=== PATIENT | male | born 1935 | race Caucasian/White ===

== ENCOUNTER 2017-04-21 05:45 | Observation (INO) | payer OTHER, MEDICARE ==
[2017-04-21 05:53] VITALS: BMI 18.2
[2017-04-21] MEDS ORDERED: NITROSTAT SL ONE (06:05)
[2017-04-21] MEDS ORDERED: ASPIRIN ONE (06:05)
[2017-04-21] MEDS: NITROSTAT SL PRN (06:09)
[2017-04-21] MEDS ORDERED: ASPIRIN PO ONE (06:09)
[2017-04-21] MEDS ORDERED: NS 1000 ML 1,000 ML ONE (06:13)
[2017-04-21] MEDS ORDERED: NS 1000 ML 1,000 ML IV ONE (06:13)
[2017-04-21 06:15] LABS: BASOPHILS # (AUTO) 0.1 X10^3/uL (0.0-0.1); BASOPHILS % (AUTO) 0.7 % (0.2-1.0); EOSINOPHILS # (AUTO) 0.3 x10^3/uL (0.0-0.2); EOSINOPHILS % (AUTO) 3.3 % (0.9-2.9); HEMATOCRIT 39.8 % (42.0-54.0); LYMPHOCYTES # (AUTO) 2.4 X10^3/uL (1.3-2.9); LYMPHOCYTES % (AUTO) 27.7 % (21.0-51.0); MEAN CORPUSCULAR HEMOGLOBIN 35.3 pg (27.0-34.0); MEAN CORPUSCULAR HGB CONC 35.1 g/dL (33.0-35.0); MEAN CORPUSCULAR VOLUME 100.4 fL (80.0-100.0); MEAN PLATELET VOLUME 7.8 fL (7.4-11.0); MONOCYTES # (AUTO) 0.7 x10^3/uL (0.3-0.8); MONOCYTES % (AUTO) 8.4 % (0.0-13.0); NEUTROPHILS # (AUTO) 5.3 x10^3/uL (2.2-4.8); NEUTROPHILS % (AUTO) 59.9 % (42.0-75.0); PLATELET COUNT 142 X10^3/uL (150.0-450.0); RED BLOOD COUNT 3.97 X10^6/uL (4.7-6.0); RED CELL DISTRIBUTION WIDTH 12.9 % (11.6-16.5); WHITE BLOOD COUNT 8.8 X10^3/uL (3.6-10.0)
--- NOTE | 2017-04-21 06:27 | RAD ---
HISTORY: Chest pain Study: Chest one view Comparison: January 12, 2017 Findings: The patient is status post median sternotomy and CABG. Bilateral pacemakers are present obscuring a portion of the mid lungs bilaterally. The heart is enlarged. No congestive heart failure is noted. N o acute alveolar infiltrates or pleural effusions are identified. The bony thorax is unremarkable. IMPRESSION: Cardiomegaly without congestive heart failure No definite infiltrates Reported By:
--- NOTE | 2017-04-21 06:35 | DR.CP ---
HPI - Time Seen Time seen: 06:00 - PCP Primary Care Physician: LA NENA - HPI Comment HPI Comment: PATIENT WOKE UP WITH PRECORDIAL CHEST PAIN/STABBING PAIN ASSOCIATED WITH SOB - Complaint Chief Complaint Doctor Comments: CHEST PAIN. Chief Complaint:: C/P SINCE EARLY THIS AM. PT HAS EXTENSIVE CARDIAC HISTORY. - Reviewed Nurses Notes Review: Yes - Source History Provided: Patient - Mode of Arrival Mode of Arrival: Ambulatory - Timing Onset of Chief Complaint: 04/21/17 Came on: Suddenly Pain: Present Now - Duration Duration: Constant Duration: Hours - Location Location of Chest Pain: Left, Chest Chest Pain Radiation Location: None - Context Onset: While Asleep Cardiac Risk Factors: HTN History of: Similar pain in the past, [place], Angina, Angioplasty Prehospital Care: [facility] - Quality Quality: Stabbing - Severity Severity: Moderate - Modifying Factors Worsens: Nothing Impoves: NTG - Associated Signs and Symptoms Associated Signs and Symptoms: Shortness of Breath PMH - PMH Past Medical History: Yes Past Medical History: Hypertension, [place] Past Medical History Comment: [place] X 6 Past Surgical History: Yes Surgical History: Angioplasty/Stents, CABG/Valve Surgery - Family History History of Family Medical Conditions: Yes Family Medical History: [place], Hypertension - Social History Alcohol Use: None Do you use any recreational Drugs:: No Lives With: Family Lives Where: Home - infectious screening In the last 2 months have you had wt loss of >10#?: NO Have you had fever, night sweats or hemotysis?: No Have you traveled outside the country in the last 6 months?: No Isolation: Standard ROS - Review of Systems Constitutional: Weakness, Fatigue. negative: Chills, Diaphoresis, Fever, Loss of Appetite Eyes: No Symptoms Reported. negative: Eye Pain, Discharge ENTM: No Symptoms Reported. negative: Ear Pain, Nose Discharge, Nose Congestion , Throat Pain Respiratoy: Short of Breath. negative: Productive Cough, Non-Productive Cough, Wheezing, Hemoptysis Cardiovascular: Chest Pain. negative: Edema, Palpitations, Syncope Gastrointestinal/Abdominal: Nausea. negative: Abdominal Pain, Constipation, Diarrhea, Vomiting Genitourinary: No Symptoms Reported. negative: Dysuria, Frequency, Hematuria Neurological: No Symptoms Reported, Weakness. negative: Headache, Dizziness Musculoskeletal: negative: Muscle Pain Integumentary: No Symptoms Reported Hematologic/Lymphatic: Easy Bruising Endocrine: No Symptoms Reported All Other Systems: Reviewed and Negative PE - Vitals Vitals: Temperature 99.2 F Pulse Rate [Apical] 71 Pulse Rate 114 Respiratory Rate 22 Blood Pressure [Left Arm] 86/50 Blood Pressure [Right Arm] 111/57 Blood Pressure 99/68 O2 Sat by Pulse Oximetry 98 - General Limitations: No Limitations General Appearance: Alert - Head Head Exam: Normal Inspection - Eyes Eye exam: Normal Appearance - ENT ENT Exam: Normal External Ear Exam - Chest Chest Inspection: Symmetric Chest Wall Rise - Respiratory Respiratory Exam: Normal Lung Sounds Bilat Respiratory Exam: Bilateral Rhonchi, Lower Rhonchi - Cardiovascular Cardiovascular Exam: Regular Rate, Normal Rhythm, Normal Heart Sounds Pulse: Normal, Radial, Femoral Edema: Normal - Abdominal Exam Abdominal Exam: Normal Bowel Sounds, Soft. negative: Tenderness - Extremities Extremities Exam: Normal Inspection, Full ROM - Back Back Exam: Normal Inspection - Neurologic Neurological Exam: Alert, Oriented X3, CN II-XII Intact, Reflexes Normal. negative: Motor Sensory Deficit - Psychiatric Psychiatric Exam: Anxious - Skin Skin Exam: Normal Color MDM - Additional Information Additional Information Obtained From: Family - Differential Diagnosis Differential Diagnosis: Angina, Gastritis, Myocardial Infarction, Pericarditis, Pleuritis, Pancreatitis, Pneumonia, Pneumothorax, Pulmonary Embolus Course - Treatment Treatment: SEE ORDERS. - Reevaluation 1st: Improved (PAIN RESOLVE IN ED WITH S/L NTG.) - Consultation Consultation Comments: DISCUSS PATIENT WITH DR. CLARK. HE WILL ADMIT PATIENT. - Education/Counseling Education/Counseling: Patient, Family, Education Educated On: Treatment, Diagnosis ROR - Labs Reviewed Laboratory Results Reviewed?: Yes Result Diagrams: 04/21/17 06:00 04/21/17 06:00 Laboratory: WBC 8.8 X10^3/uL (3.6-10.0) 04/21/17 06:00 RBC 3.97 X10^6/uL (4.7-6.0) L 04/21/17 06:00 Hgb 14.0 g/dL (13.5-18.0) 04/21/17 06:00 Hct 39.8 % (42.0-54.0) L 04/21/17 06:00 MCV 100.4 fL (80.0-100.0) H 04/21/17 06:00 MCH 35.3 pg (27.0-34.0) H 04/21/17 06:00 MCHC 35.1 g/dL (33.0-35.0) H 04/21/17 06:00 RDW 12.9 % (11.6-16.5) 04/21/17 06:00 Plt Count 142 X10^3/uL (150.0-450.0) L 04/21/17 06:00 MPV 7.8 fL (7.4-11.0) 04/21/17 06:00 Neut % 59.9 % (42.0-75.0) 04/21/17 06:00 Lymph % 27.7 % (21.0-51.0) 04/21/17 06:00 [place] % 8.4 % (0.0-13.0) 04/21/17 06:00 Eos % 3.3 % (0.9-2.9) H 04/21/17 06:00 Baso % 0.7 % (0.2-1.0) 04/21/17 06:00 Neut # 5.3 x10^3/uL (2.2-4.8) H 04/21/17 06:00 Lymph # 2.4 X10^3/uL (1.3-2.9) 04/21/17 06:00 [place] # 0.7 x10^3/uL (0.3-0.8) 04/21/17 06:00 Eos # 0.3 x10^3/uL (0.0-0.2) H 04/21/17 06:00 Baso # 0.1 X10^3/uL (0.0-0.1) 04/21/17 06:00 Absolute Nucleated RBC 0.0 /100WBC 04/21/17 06:00 INR Target Range - 04/21/17 06:00 INR 1.05 (0.8-1.3) 04/21/17 06:00 PTT 29.5 SECONDS (22.9-36.5) 04/21/17 06:00 PTT Comment - 04/21/17 06:00 Sodium 135 mmol/L (136-145) L 04/21/17 06:00 Corrected Sodium TNP 04/21/17 06:00 Potassium 4.3 mmol/L (3.5-5.1) 04/21/17 06:00 Chloride 104 mmol/L (98-107) 04/21/17 06:00 Carbon Dioxide 25.4 mmol/L (21-32) 04/21/17 06:00 BUN 20 mg/dL (7-18) H 04/21/17 06:00 Creatinine 1.21 mg/dL (0.70-1.30) 04/21/17 06:00 Est GFR (MDRD) Af Amer > 60 (>60) 04/21/17 06:00 Est GFR (MDRD) Non-Af > 60 (>60) 04/21/17 06:00 Glucose 103 mg/dL (65-99) H 04/21/17 06:00 Calcium 9.5 mg/dL (8.5-10.1) 04/21/17 06:00 Corrected Calcium TNP 04/21/17 06:00 Magnesium 1.8 mg/dL (1.7-2.9) 04/21/17 06:00 Total Bilirubin 0.70 mg/dL (0.2-1.0) 04/21/17 06:00 AST 26 Units/L (15-37) 04/21/17 06:00 ALT 34 Units/L (12-78) 04/21/17 06:00 Alkaline Phosphatase 87 Units/L (46-116) 04/21/17 06:00 Creatine Kinase 62 Units/L (39-308) 04/21/17 06:00 CK-MB (CK-2) 1.4 ng/mL (0-4.0) 04/21/17 06:00 CK/CKMB % Calc 2.3 % (<4) 04/21/17 06:00 Troponin I 0.03 ng/mL (0-1.5) 04/21/17 06:00 Total Protein 7.3 g/dL (6.4-8.2) 04/21/17 06:00 Albumin 3.5 g/dL (3.4-5.0) 04/21/17 06:00 Globulin 3.8 g/dL (2.5-4.5) 04/21/17 06:00 Albumin/Globulin Ratio 0.9 Ratio (1.1-2.1) L 04/21/17 06:00 - XRAY XRAY Interpreted by: Radiologist XRAY Findings: REPORT DISCUSS WITH PATIENT AND HIS . - EKG Rhythm: Paced - Diagnosis Discharge Problem: Chest pain Qualifiers: Chest pain type: precordial pain Qualified Code(s): R07.2 - Precordial pain CAD (coronary artery disease) Qualifiers: Coronary Disease-Associated Artery/Lesion type: unspecified vessel or lesion type [place] vs. transplanted heart: unspecified whether [place] or transplanted heart Associated angina: with unspecified angina Qualified Code(s): I25.119 - Atherosclerotic heart disease of [place] coronary artery with unspecified angina pectoris - Discharge Plan Disposition: 09 ADMITTED INPATIENT Condition: Stable - Follow ups/Referrals - Instructions
[2017-04-21 06:42] LABS: BLOOD UREA NITROGEN 20 mg/dL (7-18); CALCIUM 9.5 mg/dL (8.5-10.1); CARBON DIOXIDE 25.4 mmol/L (21-32); CHLORIDE 104 mmol/L (98-107); CREATININE 1.21 mg/dL (0.70-1.30); GLUCOSE 103 mg/dL (65-99); SODIUM 135 mmol/L (136-145); TROPONIN I 0.03 ng/mL (0-1.5); eGFR BLACK RACES > 60 (>60); eGFR NON BLACK RACES > 60 (>60)
[2017-04-21 06:46] LABS: ALANINE AMINOTRANSFERASE 34 Units/L (12-78); ALBUMIN 3.5 g/dL (3.4-5.0); ALKALINE PHOSPHATASE 87 Units/L (46-116); ASPARTATE AMINO TRANSFERASE 26 Units/L (15-37); CKMB % 2.3 % (<4); CREATINE KINASE 62 Units/L (39-308); CREATINE KINASE MB 1.4 ng/mL (0-4.0); TOTAL PROTEIN 7.3 g/dL (6.4-8.2)
[2017-04-21 11:59] LABS: CKMB % 3.5 % (<4); CREATINE KINASE MB 1.9 ng/mL (0-4.0); TROPONIN I 0.1 ng/mL (0-1.5)
[2017-04-21] MEDS ORDERED: PATIENT'S HOME MEDICATION (Lisinopril [Lisinopril] 1 TAB) PO SCH (13:30)
[2017-04-21] MEDS ORDERED: PREVNAR 13 IM ONE (14:00)
[2017-04-21] MEDS: MEMANTINE HCL DONEPEZIL HCL PO SCH (14:29)
[2017-04-21] MEDS: PLETAL PO SCH (14:30)
[2017-04-21] MEDS: COREG TAB 3.125 MG PO SCH ×2 (14:30→21:20)
[2017-04-21] MEDS: RANEXA PO SCH ×2 (14:30→21:20)
[2017-04-21] MEDS: ISOSORBIDE MONONITRATE ER PO SCH (14:31)
[2017-04-21 17:52] LABS: CKMB % 3.2 % (<4); CREATINE KINASE MB 1.5 ng/mL (0-4.0); TROPONIN I 0.13 ng/mL (0-1.5)
--- NOTE | 2017-04-21 18:06 | DR.H&P ---
H&P - History & Physical for Day of: H&P Date: 04/21/17 - Chief Complaint Chief Complaint: CP - Allergies Allergies/Adverse Reactions: Allergies Allergy/AdvReac Type Severity Reaction Status Date / Time Promethazine Allergy Unknown Verified 01/12/17 01:24 [From Phenergan-D] Pseudoephedrine Allergy Unknown Verified 01/12/17 01:24 [From Phenergan-D] - History of Present Illness History of Present Illness: 81 WM ADMITTED FROM ER AFTER PRESENTING WITH CO CP THAT WOKE HIM UP FROM SLEEP. PT TOOK NITRO SL PRIOR TO ARRIVAL. PT FIRST SET OF CARDIAC ENZYMES WNL. PT HAS PMH OF CAD WITH CABG, PT HAS PACER/EDFIBRILLATOR. 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 - Past Medical History Past Medical History: Hypertension, [place] - Past Surgical History Surgical History: Angioplasty/Stents, CABG/Valve Surgery - Family History Family Medical History: [place], Hypertension - Social History Does patient currently use any type of tobacco product: No Have you used tobacco products in the last 12 months: No Type of Tobacco Use: None Does any household member use tobacco: No Alcohol Use: None Drug Use: None - Medications Home Medications: Carvedilol [Carvedilol] 1 tab PO BID 04/21/17 [History Confirmed 04/21/17] - Review of Systems Constitutional: No Symptoms Reported Eyes: No Symptoms Reported ENT: No Symptoms Reported Respiratory: No Symptoms Reported Cardiovascular: Chest Pain Gastrointestinal: No Symptoms Reported Genitourinary: No Symptoms Reported Musculoskeletal: No Symptoms Reported Skin: No Symptoms Reported Neurological: Confusion (STABLE DEMENTIA) - Physical Exam Vital Signs: Temperature 98.0 F Pulse Rate [Right Brachial] 70 Pulse Rate [Apical] 70 Respiratory Rate 20 Blood Pressure [Left Arm] 131/63 Blood Pressure [Right Arm] 100/56 O2 Sat by Pulse Oximetry 100 Oriented: Normal Eyes: Normal Ear: Normal Nose: Normal Throat: Normal Respiratory: RLL Diminished, LLL Diminished Cardiovascular: Normal, Other (PACER/ DEFIB COMBO ) : Normal Auscultation: Bowel Sounds: Normal Palpation: Normal Tenderness: Normal Skin: Decreased [place] Musculoskeletal: Normal Psychiatric: Normal Speech Pattern: Clear, Appropriate - Assessment/Plan (1) Chest pain Qualifiers: Chest pain type: precordial pain Ischemic chest pain type: I Qualified Code(s): R07.2 - Precordial pain Status: Acute Plan: ADMIT, SERIAL CE'S, EKG'S. RESUME HOME MEDS, BP AND LIPID CONTROL (2) CAD (coronary artery disease) Qualifiers: Coronary Disease-Associated Artery/Lesion type: unspecified vessel or lesion type [place] vs. transplanted heart: unspecified whether [place] or transplanted heart Associated angina: with unspecified angina Qualified Code (s): I25.119 - Atherosclerotic heart disease of [place] coronary artery with unspecified angina pectoris Status: Acute (3) Dementia Qualifiers: Dementia type: D Alzheimer's disease onset: A Dementia behavioral disturbance: D Status: Acute (4) Essential hypertension Status: Active (5) Left heart failure Status: Active (6) Peripheral vascular disease Status: Active
[2017-04-21] MEDS ORDERED: RESTORIL CAP 15 MG PO PRN (22:52)
[2017-04-22] MEDS: NITROSTAT SL PRN (00:08)
[2017-04-22] MEDS ORDERED: PLAVIX PO ONE (00:38)
[2017-04-22] MEDS: LOVENOX INJ 60 MG SYR SC SCH ×2 (00:50→09:58)
[2017-04-22] MEDS: ECOTRIN TAB 325 MG PO SCH ×2 (00:52→09:57)
[2017-04-22 00:53] LABS: CKMB % 2.1 % (<4); CREATINE KINASE MB 1.3 ng/mL (0-4.0); TROPONIN I 0.06 ng/mL (0-1.5)
[2017-04-22 06:13] LABS: BASOPHILS % (AUTO) 0.5 % (0.2-1.0); EOSINOPHILS # (AUTO) 0.3 x10^3/uL (0.0-0.2); EOSINOPHILS % (AUTO) 2.8 % (0.9-2.9); HEMATOCRIT 38.8 % (42.0-54.0); HEMOGLOBIN 13.7 g/dL (13.5-18.0); LYMPHOCYTES # (AUTO) 2.8 X10^3/uL (1.3-2.9); LYMPHOCYTES % (AUTO) 28.9 % (21.0-51.0); MEAN CORPUSCULAR HEMOGLOBIN 35.1 pg (27.0-34.0); MEAN CORPUSCULAR HGB CONC 35.4 g/dL (33.0-35.0); MEAN CORPUSCULAR VOLUME 99.3 fL (80.0-100.0); MONOCYTES # (AUTO) 0.8 x10^3/uL (0.3-0.8); MONOCYTES % (AUTO) 8.2 % (0.0-13.0); NEUTROPHILS # (AUTO) 5.8 x10^3/uL (2.2-4.8); NEUTROPHILS % (AUTO) 59.6 % (42.0-75.0); PLATELET COUNT 125 X10^3/uL (150.0-450.0); RED CELL DISTRIBUTION WIDTH 13.1 % (11.6-16.5); WHITE BLOOD COUNT 9.8 X10^3/uL (3.6-10.0)
[2017-04-22 06:18] LABS: ALANINE AMINOTRANSFERASE 29 Units/L (12-78); ALBUMIN 3.2 g/dL (3.4-5.0); ALKALINE PHOSPHATASE 90 Units/L (46-116); ASPARTATE AMINO TRANSFERASE 30 Units/L (15-37); BLOOD UREA NITROGEN 17 mg/dL (7-18); CALCIUM 8.8 mg/dL (8.5-10.1); CARBON DIOXIDE 24.6 mmol/L (21-32); CHLORIDE 107 mmol/L (98-107); CHOL/HDL RATIO 3.9 (0.0-5.0); CHOLESTEROL 175 mg/dL (0-200); COR CA(FOR HYPOALB) 9.4 mg/dL (8.5-10.1); CREATININE 0.99 mg/dL (0.70-1.30); GLUCOSE 78 mg/dL (65-99); HDL CHOLESTEROL 45 mg/dL (40-60); SODIUM 138 mmol/L (136-145); TOTAL PROTEIN 6.6 g/dL (6.4-8.2); TRIGLYCERIDES 78 mg/dL (0-150); eGFR BLACK RACES > 60 (>60); eGFR NON BLACK RACES > 60 (>60)
[2017-04-22] MEDS ORDERED: ZESTRIL TAB 5 MG PO SCH (09:00)
[2017-04-22] MEDS ORDERED: PLAVIX PO SCH (09:00)
[2017-04-22] MEDS: ISOSORBIDE MONONITRATE ER PO SCH (09:57)
[2017-04-22] MEDS: COREG TAB 3.125 MG PO SCH (09:57)
[2017-04-22] MEDS: PLETAL PO SCH (09:58)
[2017-04-22] MEDS: RANEXA PO SCH (09:58)
[2017-04-22] MEDS: MEMANTINE HCL DONEPEZIL HCL PO SCH (09:58)
[2017-04-22 12:34] VITALS: BP 104/58
== END 2017-04-22 15:45 | disposition short-term general hospital (02) ==
LOC: ER 05:45 → MED/SURG 07:58
PROVIDERS: ADMIT Internal Medicine; ATTEND Internal Medicine
DX: R07.2 Precordial pain (principal); I25.119 Atherosclerotic heart disease of native coronary artery with unspecified angina pectoris; R06.02 Shortness of breath; Z95.0 Presence of cardiac pacemaker; I73.89 Other specified peripheral vascular diseases; I50.1 Left ventricular failure, unspecified
CPT/HCPCS: 36415; 71010; 80053; 80061; 82550; 82553; 83735; 84484; 85025; 85610; 85730; 93005; 93010; 94760; 96365; 99284; A4222; 90670; G0378; J1650